=== PATIENT | male | born 1995 ===

== ENCOUNTER 2018-07-23 20:18 | Emergency (ER) | payer BC ==
[2018-07-23 20:32] VITALS: RESP 18; TEMP 98.7; O2SAT 99
--- NOTE | 2018-07-23 21:52 | ED PDOC ---
HPI: Chest Pain Time Seen by Provider: 07/23/18 20:43 Chief Complaint (Nursing): Chest Pain Chief Complaint (Provider): Cest pain History Per: Patient History/Exam Limitations: no limitations Onset/Duration Of Symptoms: Intermittent Episodes Current Symptoms Are (Timing): Still Present Additional History Per: Patient Additional Complaint(s): 23yo male, otherwise healthy, comes to ER for evaluation of shortness of breath with exertion x 4 month, present intermittently, and associated with chest pain. Patient states the symptoms are present with going up the stairs or walking, but resolve after a few minutes of reast. Patient states he was at his PMD today for a regular check up and states he initially did not mention his symptoms but upon finding out he had an abnormal EKG, patient told his PMD about the shortness of breath and was sent here for further evaluation. Of note, patient states he uses cocaine occasionally - with last use 2 weeks ago; he uses marijuana as well, with last use 6 months ago. Patient states he also binge drinks per weekend. Patient additionally states in 2017 when he had bloodwork done for a life insurance test, he was noted to have high triglycerides. PMD: Dr. Camargo Against Medical Advice - AMA Patient Left Against Medical Advice: The patient declines admission to the hospital and wishes to leave the Emergency Department. This action is against my medical advice. This decision was made with informed refusal. The patient was told that admission to the hospital is necessary. Explanation of the reasons why were discussed. The risks of leaving were explained to the patient and include, but are not limited to, worsening of known or currently unknown conditions, permanent disability and from undiagnosed or untreated conditions. The patient has the capacity to make this informed decision and understands my explanation of the current medical problem and risks of leaving. The patient voluntarily accepts these risks and signed an AMA form documenting our conversation. The patient was given the opportunity to ask questions and reconsider. The patient was encouraged to return to the Emergency Department at any time for further care. Past Medical History Reviewed: Historical Data, Nursing Documentation, Vital Signs Vital Signs: Last Vital Signs Temp 98.7 F 07/23/18 20:28 Pulse 83 07/23/18 20:28 Resp 18 07/23/18 20:28 BP 141/83 07/23/18 20:28 Pulse Ox 99 07/23/18 20:28 - Medical History PMH: No Chronic Diseases - Surgical History Surgical History: No Surg Hx - Family History Family History: States: [place] (father had [place] at 46yo), Diabetes, Hypertension - Social History Current smoker - smoking cessation education provided: No Alcohol: Other (binge drinking over weekend) Drugs: Cannabis, Cocaine - Allergies Allergies/Adverse Reactions: Allergies Allergy/AdvReac Type Severity Reaction Status Date / Time No Known Allergies Allergy Verified 07/23/18 20:33 Review of Systems ROS Statement: Except As Marked, All Systems Reviewed And Found Negative (as per HPI) Cardiovascular: Positive for: Chest Pain Respiratory: Positive for: Shortness of Breath Physical Exam - Reviewed Nursing Documentation Reviewed: Yes Vital Signs Reviewed: Yes - Physical Exam Appears: Positive for: Non-toxic, No Acute Distress - Laboratory Results Result Diagrams: 07/23/18 21:37 07/23/18 21:45 - ECG ECG: Positive for: Interpreted By Me, Viewed By Me ECG Rhythm: Positive for: Sinus Rhythm Interpretation Of ECG: T-wave inversion in inferior leads. T-wave abnormalities in V1-V4, consistent with possible Wellens' syndrome. Rate: 77 O2 Sat by Pulse Oximetry: 99 Medical Decision Making Medical Decision Making: Impression: Chest pain, shortness of breath Differential: Including but not limited to CAD, CHF, unstable angina, ACS Plan: * Labs * EKG * Chest x-ray [address] Camargo, patient's PMD, who is agreeable with plan for admission. Scribe Attestation: Documented by Marsha Roberts, acting as a scribe for Codie Wynn MD Provider Scribe Attestation: All medical record entries made by the Scribe were at my direction and personally dictated by me. I have reviewed the chart and agree that the record accurately reflects my personal performance of the history, physical exam, medical decision making, and the department course for this patient. I have also personally directed, reviewed, and agree with the discharge instructions and disposition. Disposition - Clinical Impression Clinical Impression: Abnormal EKG, Exertional angina - Disposition Condition: UNKNOWN
[2018-07-23 21:54] LABS: BASO # 0.1 K/uL (0.0-0.2); BASO % 1.1 % (0.0-2.0); EOS # 0.2 K/uL (0.0-0.7); EOS % 2.3 % (0.0-4.0); HEMOGLOBIN 15.4 g/dL (12.0-18.0); LYMPH # 2.2 K/uL (1.0-4.3); LYMPH % 29.1 % (20.0-40.0); MEAN CORPUSCULAR HEMOGLOBIN 29.8 pg (27.0-31.0); MEAN CORPUSCULAR HGB CONC 34.6 g/dL (33.0-37.0); MEAN PLATELET VOLUME 9.3 fl (7.2-11.7); MONO # 0.6 K/uL (0.0-0.8); MONO % 7.8 % (0.0-10.0); NEUT # 4.5 K/uL (1.8-7.0); NEUT % 59.7 % (50.0-75.0); NRBC % 0.1 % (0.0-0.0); RBC 5.19 Mil/uL (4.40-5.90); RED CELL DISTRIBUTION WIDTH 12.6 % (11.5-14.5); WHITE BLOOD COUNT 7.6 K/uL (4.8-10.8)
[2018-07-23 22:11] LABS: BARBITURATES, UR NEGATIVE (NEGATIVE); BENZODIAZEPINES, UR NEGATIVE (NEGATIVE); OPIATES, UR NEGATIVE (NEGATIVE); PHENCYCLIDINE, UR NEGATIVE (NEGATIVE)
[2018-07-23 22:11] LABS: ALB/GLOB RATIO 1.3 (1.0-2.1); ALBUMIN 5.2 g/dL (3.5-5.0); ALT/SGPT 81 U/L (21-72); AST/SGOT 65 U/L (17-59); BLOOD UREA NITROGEN 14 mg/dl (9-20); CALCIUM 9.8 mg/dL (8.4-10.2); GFR NON-AFRICAN AMERICAN > 60
[2018-07-23] MEDS ORDERED: Aspirin 325 mg EC Tablets PO STA (22:31)
[2018-07-23 22:40] LABS: PROTHROMBIN TIME 11.7 Seconds (9.8-13.1)
[2018-07-23 22:41] LABS: B-TYPE NATRIURETIC PEPTIDE 112 pg/ml (0-450)
[2018-07-23 22:42] LABS: PARTIAL THROMBOPLASTIN TIME 31.1 Seconds (25.6-37.1)
[2018-07-23] MEDS ORDERED: Aspirin 325 mg EC Tablets PO ONE (22:43)
[2018-07-23 23:02] LABS: D DIMER < 200 ng/mlDDU (0-230)
[2018-07-23 23:19] VITALS: BP 148/86
[2018-07-23 23:26] VITALS: PULSE 77
--- NOTE | 2018-07-24 11:41 | RAD ---
Date of service: 07/23/2018 HISTORY: chest pain sob COMPARISON: No prior. TECHNIQUE: Chest PA and lateral FINDINGS: LUNGS: No active pulmonary disease. PLEURA: No significant pleural effusion identified. No pneumothorax apparent. CARDIOVASCULAR: No aortic atherosclerotic calcification present. Normal cardiac size. No pulmonary vascular congestion. OSSEOUS STRUCTURES: No significant abnormalities. VISUALIZED UPPER ABDOMEN: Normal. OTHER FINDINGS: None. IMPRESSION: No active disease.
--- NOTE | 2018-07-24 15:15 | CARD ---
APPROVED REPORT Date of service: 07/23/2018 EKG Measurement Heart [id number] CT [id number] <Conclusion> Normal sinus rhythm with sinus arrhythmia T wave abnormality, consider inferior ischemia T wave abnormality, consider anterior ischemia Abnormal ECG
== END 2018-07-23 23:27 | disposition home or self-care (01) ==
LOC: H.ER 20:18 → H.ERHOLD 22:33 → UNDOADMIN 22:33
DX: I20.8 Other forms of angina pectoris (principal); R93.1 Abnormal findings on diagnostic imaging of heart and coronary circulation
CPT/HCPCS: 71046; 80053; 83735; 83880; 84100; 84443; 84484; 85025; 85378; 85610; 85730; 86850; 86900; 93005; 99284; G0480